=== PATIENT | female | born 2000 | race African-American/Black ===

== ENCOUNTER 2021-05-10 23:17 | Emergency (ER) | payer MEDICAID ==
[~2021-05-10] VITALS: Ht 170.2 cm; Wt 90.0 kg
[2021-05-11] MEDS ORDERED: DIAZEPAM 5 MG TABLET PO ONE (00:30)
[2021-05-11] MEDS ORDERED: KETOROLAC 60MG/2ML VIAL IM ONE (00:45)
[2021-05-11 01:38] VITALS: BP 138/80
[2021-05-11] MEDS ORDERED: IBUP-2030 MT (01:42)
[2021-05-11] MEDS ORDERED: METH-773 MT (01:42)
== END 2021-05-11 02:00 | disposition home or self-care (01) ==
LOC: ER 23:17
DX: S09.8XXA Other specified injuries of head, initial encounter (principal); M54.2 Cervicalgia; V43.52XA Car driver injured in collision with other type car in traffic accident, initial encounter; Y93.89 Activity, other specified; Y92.488 Other paved roadways as the place of occurrence of the external cause
CPT/HCPCS: 71250; 72125; 93005; 96372; 99284; J1885